=== PATIENT | male | born 1975 | race Caucasian/White ===

== ENCOUNTER 2021-09-19 10:07 | Emergency (ER) | payer OTHER ==
[~2021-09-19] VITALS: Ht 180.3 cm; Wt 86.2 kg
[2021-09-19] MEDS ORDERED: ZYRTEC10 M5 PO (10:14)
[2021-09-19] MEDS ORDERED: FLONASE 0.05%50 MCG NARES (10:14)
[2021-09-19] MEDS ORDERED: OMEPRAZOLE20 M2 PO (10:14)
[2021-09-19 10:47] LABS: ABSOLUTE EOSINOPHILS 0.1 thou/uL (0.0-0.7); ABSOLUTE LYMPHOCYTES 1.1 thou/uL (0.8-5.3); NUCLEATED RBCS 0 /100WBC; WBC 3.2 thou/uL (4.0-11.0)
[2021-09-19 10:49] LABS: ABSOLUTE MONOCYTES 0.4 thou/uL (0.0-1.2); ABSOLUTE NEUTROPHILS 1.6 thou/uL (1.6-8.1); BASOPHILS 0.5 %; EOSINOPHILS 3.2 %; HEMATOCRIT 46.7 % (42.0-52.0); HEMOGLOBIN 16.1 gm/dL (14.0-18.0); MCH 30.8 pg (26.0-34.0); MCHC 34.5 g/dL (28.0-37.0); MONOCYTES 13.4 %; MPV 7.3 fl. (7.2-11.1); PLATELET COUNT* 218 thou/uL (150-400); POLYS 47.9 %; RBC 5.24 mil/uL (4.50-6.00); RDW-CV 13.6 % (10.5-14.5)
[2021-09-19 10:54] LABS: CALCIUM 8.8 mg/dL (8.5-10.1); CREATININE 0.9 mg/dL (0.6-1.3); POTASSIUM 4.2 mmol/L (3.5-5.1)
[2021-09-19 11:06] LABS: ALBUMIN 4.2 g/dL (3.4-5.0); CK-MB MASS 1.1 ng/mL (<0.5-3.6); MAGNESIUM 2.1 mg/dL (1.8-2.4); TOTAL BILIRUBIN 2.7 mg/dL (<0.1-1.0); TOTAL PROTEIN 7.5 g/dL (6.4-8.2)
[2021-09-19 11:29] VITALS: BP 153/111
--- NOTE | 2021-09-19 16:43 | EKG ---
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: [facility] : 1975 Requested By: [place] Order Number: [id number] MD: Manjeet Shaver Measurements Intervals [place] Rate: 79 P: 27 WA: 173 QRS: -10 QRSD: 97 T: 50 QT: 365 QTc: 419 Interpretive Statements Sinus rhythm RsR' in V1 Probable left atrial enlargement Anteroseptal infarct, age indeterminate No previous ECG available for comparison Electronically Signed On 09-19-2021 16:43:04 [employer] by Manjeet Shaver [email or web address] <ELECTRONICALLY SIGNED> By: Manjeet Shaver MD, FAC 09/19/21 1643 1012 1012 Manjeet Shaver MD, [facility] /EPI
== END 2021-09-19 11:30 | disposition home or self-care (01) ==
LOC: M.ERS 10:07
PROVIDERS: Family Medicine
DX: R07.89 Other chest pain (principal); R51.9 Headache, unspecified; R06.02 Shortness of breath; I10 Essential (primary) hypertension; R42 Dizziness and giddiness; Z79.899 Other long term (current) drug therapy